=== PATIENT | female | born 1960 | race Hispanic/Latino ===

== ENCOUNTER → 2018-10-23 | Day surgery (SDC) | payer OTHER ==
[~2018-10-23] MED LIST: AUGMENTIN 500-1 EACH PO; FAMOTIDINE20 MG PO; FENTANYL CITRATE/PF 100MCG/2 ML INJ ONE; MIDAZOLAM HCL 2 MG/2 ML VIAL ONE; PANTOPRAZOLE SO40 MG PO; PROPOFOL IV EMULSION 10 MG/ML 50 ML VIAL ONE
[2018-10-23 13:34] VITALS: BP 135/88
== END | disposition home or self-care (01) ==
LOC: OR 09:20
PROVIDERS: ATTEND Internal Medicine Gastroenterology
DX: K29.70 Gastritis, unspecified, without bleeding (principal); K21.0 Gastro-esophageal reflux disease with esophagitis; K44.9 Diaphragmatic hernia without obstruction or gangrene; K76.89 Other specified diseases of liver; N28.1 Cyst of kidney, acquired; Z01.810 Encounter for preprocedural cardiovascular examination; Z68.31 Body mass index [BMI] 31.0-31.9, adult; Z80.0 Family history of malignant neoplasm of digestive organs
CPT/HCPCS: 43239; 93005; J2250; J2704

== ENCOUNTER 2019-11-04 10:28 | Emergency (ER) | payer OTHER ==
[~2019-11-04] VITALS: Ht 142.2 cm; Wt 77.1 kg
[~2019-11-04 10:28] MED LIST changes: -FENTANYL CITRATE/PF 100MCG/2 ML INJ ONE; -MIDAZOLAM HCL 2 MG/2 ML VIAL ONE; -PROPOFOL IV EMULSION 10 MG/ML 50 ML VIAL ONE
[2019-11-04 11:32] LABS: BASOPHILS # (AUTO) 0.1 (0.0-0.1); BASOPHILS % 1.1 % (0.0-1.0); EOSINOPHILS # (AUTO) 0.1 (0.0-0.4); EOSINOPHILS % 0.8 % (0.0-6.0); HEMATOCRIT 42.7 % (34.2-44.1); HEMOGLOBIN 13.6 g/dL (12.0-16.0); MEAN CORPUSCULAR HEMOGLOBIN 27.6 pg (28-32); MEAN CORPUSCULAR HGB CONC 31.9 g/dL (31-35); MEAN CORPUSCULAR VOLUME 86.8 fL (81-99); MONOCYTES # (AUTO) 0.6 (0.2-0.8); MONOCYTES % 10.3 % (4.4-11.3); NEUTROPHILS # (AUTO) 3.4 (2.1-6.9); NEUTROPHILS % 55.2 % (38.7-80.0); PLATELET COUNT 330 x10e3/uL (140-360); RED BLOOD COUNT 4.92 x10e6/uL (3.6-5.1); RED CELL DISTRIBUTION WIDTH 13.8 % (11.7-14.4)
[2019-11-04 11:57] LABS: ALANINE AMINOTRANSFERASE 15 IU/L (0-55); ALBUMIN/GLOBULIN RATIO 1.1 (0.8-2.0); ALKALINE PHOSPHATASE 68 IU/L (40-150); ANION GAP 12.1 mmol/L (8-16); BLOOD UREA NITROGEN 12 mg/dL (7-26); BUN/CREATININE RATIO 15 (6-25); CALCIUM 9.3 mg/dL (8.4-10.2); CARBON DIOXIDE 27 mmol/L (22-29); CHLORIDE 106 mmol/L (98-107); CREATINE KINASE 49 IU/L (29-168); CREATININE, SERUM 0.81 mg/dL (0.57-1.11); EST GLOMERULAR FILTRATION RATE > 60 ML/MIN (60-); GLUCOSE 87 mg/dL (74-118); POTASSIUM 4.1 mmol/L (3.5-5.1); SODIUM 141 mmol/L (136-145)
--- NOTE | 2019-11-04 12:32 | Diagnostic Imaging Report ---
Chest, PA and lateral. History: Dizziness Comparison: None available. Discussion: The cardiomediastinal silhouette and pulmonary vasculature are within normal limits. The lungs are clear without evidence of consolidation or effusion. There are no acute osseous abnormalities. IMPRESSION: No radiographic evidence of acute cardiopulmonary abnormality. Signed by: Doug Bustos MD on 11/04/2019 12:29 PM
[2019-11-04 12:44] VITALS: BP 148/76
== END 2019-11-04 12:49 | disposition home or self-care (01) ==
LOC: ER 10:28
DX: R07.89 Other chest pain (principal); R05 Cough
CPT/HCPCS: 36415; 71046; 80053; 82550; 82553; 83880; 84484; 85025; 85379; 93005; 99281

== ENCOUNTER → 2025-06-12 | Outpatient (REF) | payer OTHER | LOC: US 08:35 | PROVIDERS: ATTEND Family Medicine | DX: K76.89 Other specified diseases of liver (principal); K76.0 Fatty (change of) liver, not elsewhere classified | CPT/HCPCS: 76705 ==